=== PATIENT | female | born 1965 | race Caucasian/White ===

== ENCOUNTER 2024-04-24 16:09 | Emergency (ER) | payer MEDICAID ==
[~2024-04-24] VITALS: Ht 157.5 cm; Wt 46.3 kg
[2024-04-24 16:42] VITALS: TEMP 98.3
[2024-04-24] MEDS ORDERED: ALBU8.5H8 INH (16:59)
[2024-04-24] MEDS ORDERED: SULF1TAB48 PO (16:59)
[2024-04-24] MEDS ORDERED: BENZ-13 PO (16:59)
[2024-04-24] MEDS ORDERED: CEPH500C2 PO (16:59)
[2024-04-24] MEDS ORDERED: TDAP [DIPH/PERTUSSIS/TET] 0.5 ML VIAL IM ONE (17:07)
[2024-04-24] MEDS: TDAP [DIPH/PERTUSSIS/TET] 0.5 ML VIAL IM ONE (17:10)
[2024-04-24 17:25] VITALS: BP 140/85
[2024-04-24 17:30] VITALS: O2SAT 98
== END 2024-04-24 17:38 | disposition home or self-care (01) ==
LOC: ER 16:09
DX: S91.332A Puncture wound without foreign body, left foot, initial encounter (principal); R05.9 Cough, unspecified; G30.9 Alzheimer's disease, unspecified; F02.80 Dementia in other diseases classified elsewhere, unspecified severity, without behavioral disturbance, psychotic disturbance, mood disturbance, and anxiety; G20.A1 Parkinson's disease without dyskinesia, without mention of fluctuations; J06.9 Acute upper respiratory infection, unspecified; J44.9 Chronic obstructive pulmonary disease, unspecified; W22.8XXA Striking against or struck by other objects, initial encounter; Y93.89 Activity, other specified; Y92.89 Other specified places as the place of occurrence of the external cause; Y99.8 Other external cause status
CPT/HCPCS: 90715